=== PATIENT | male | born 1990 | race Two or more races ===

== ENCOUNTER 2016-05-07 11:10 | Emergency (ER) | payer OTHER ==
[~2016-05-07] VITALS: Ht 170.2 cm; Wt 90.5 kg
[2016-05-07 11:19] VITALS: Ht 170.2 cm; Wt 90.5 kg
[2016-05-07] MEDS ORDERED: KETOROLAC 30 MG INJ IM STA (14:14)
--- NOTE | 2016-05-07 15:17 | ERD ---
ER Documentation Chief Complaint Date/Time DATE: 05/07/16 TIME: 15:12 Chief Complaint LEFT KNEE PAIN/INJURY HPI This is a 25-year-old male who presents emergency department after injury at work. Patient states he was climbing a ladder when he tripped and fell missing his step. Patient then began having left knee pain after incident. Patient states at rest he does not have any pain however with certain movements he does have pain to left knee. Walking without difficulty. No obvious deformity. Able to bear weight without severe pain. No loss of sensation, numbness or tingling to extremities. No laceration or ecchymosis. ROS All systems reviewed and are negative except as per history of present illness. Medications Home Meds Active Scripts Ibuprofen* (Motrin*) 600 Mg Tab, 600 MG PO Q6, #15 TAB Prov:PAM DELGADO NP 05/07/16 Allergies Allergies: Coded Allergies: No Known Allergy (Unverified , 05/07/16) PMhx/Soc Medical and Surgical Hx: pt denies Medical Hx, pt denies Surgical Hx Hx Alcohol Use: No Hx Substance Use: No Hx Tobacco Use: No Smoking Status: Unknown if ever smoked Physical Exam Vitals Vital Signs Date Time Temp Pulse Resp B/P Pulse Ox O2 Delivery O2 Flow Rate FiO2 05/07/16 11:19 97.6 92 19 117/72 99 Physical Exam Const: Alert, [id number] Head: Atraumatic Eyes: Normal Conjunctiva ENT: Normal External Ears, Nose and Mouth. Neck: Full range of motion..~ No meningismus. Resp: Clear to auscultation bilaterally Cardio: Regular rate and rhythm, no murmurs Abd: Soft, non tender, non distended. Normal bowel sounds Skin: No petechiae or rashes Back: No midline or flank tenderness Ext: No cyanosis, or edema. Full mobility to bilateral lower extremities. Neur: Awake and alert Psych: Normal Mood and Affect Results 24 hrs Current Medications Medications (Trade) Dose Ordered Sig/Lucinda Route PRN Reason Start Time Stop Time Status Last Admin Dose Admin Ketorolac Tromethamine (Toradol) 30 mg ONCE STAT IM 05/07/16 14:14 05/07/16 14:16 DC 05/07/16 14:22 Procedures/MDM ED COURSE: The patient was stable throughout ED course. I kept the patient and/or family informed of laboratory and diagnostic imaging results throughout the ED course. Imaging X-ray left knee Patient: ROBERTO ALVARES : 1990 Age: 25 Sex: M [id number] DOS: 05/07/16 1414 Ordering MD: PAM DELGADO NP Location: [facility] Room/Bed: PROCEDURE: Left knee series CLINICAL INDICATION: Trauma and pain. TECHNIQUE: 4 views. COMPARISON: None FINDINGS: No fractures or lesions are noted. Joint spaces are well maintained. No significant osteophytosis is noted. There is a questionable suprapatellar effusion. No erosions are visualized. The soft tissues are unremarkable. Benign-appearing sclerosis is noted in the proximal left fibula. IMPRESSION: 1. No acute bony abnormalities. 2. Questionable suprapatellar effusion. MDM: 25-year-old male presents emergency department after knee injury. Patient given Toradol while in the ED with good relief of pain. X-ray reviewed by radiologist as unremarkable. Vital signs remained stable. No fevers or chills. No obvious deformities. Patient requesting note for work. Low suspicion for acute dislocation or fracture. Low suspicion for compartment syndrome. Patient's diagnosis is knee pain secondary to injury. Patient is appropriate for outpatient management will be given prescription for ibuprofen. Instructed patient to follow-up with primary care provider in the next 2-3 days for reassessment and additional management. Return to ED for any high fever, chest pain, difficulty breathing, shortness breath, wheezing, vomiting, diarrhea, abdominal pain or any new or worsening symptoms. Patient verbalizes understanding. All questions answered at discharge. Departure Diagnosis: Primary Impression: Knee pain Laterality: left Chronicity: acute Qualified Code: M25.562 - Acute pain of left knee Condition: Stable PAM DELGADO NP May 07, 2016 15:17
--- NOTE | 2016-05-07 15:20 | RADRPT ---
PROCEDURE: Left knee series CLINICAL INDICATION: Trauma and pain. TECHNIQUE: 4 views. COMPARISON: None FINDINGS: No fractures or lesions are noted. Joint spaces are well maintained. No significant osteophytosis is noted. There is a questionable suprapatellar effusion. No erosions are visualized. The soft tissues are unremarkable. Benign-appearing sclerosis is noted in the proximal left fibula. IMPRESSION: 1. No acute bony abnormalities. 2. Questionable suprapatellar effusion. RPTAT: HH .Rocky Kamara MD, MD Date Time Electronically viewed and signed by .Rocky Kamara MD, on 05/07/2016 15:20 .G/
[2016-05-07] MEDS ORDERED: IBUP-1542 PO (15:45)
== END 2016-05-07 15:56 | disposition home or self-care (01) ==
LOC: FTE 11:10
DX: S89.92XA Unspecified injury of left lower leg, initial encounter (principal); W11.XXXA Fall on and from ladder, initial encounter; Y92.89 Other specified places as the place of occurrence of the external cause
CPT/HCPCS: 73562; 96372; 99284; J1885